=== PATIENT | female | born 1945 | race Caucasian/White ===

== ENCOUNTER 2019-12-10 18:27 | Emergency (ER) | payer OTHER, BC ==
[2019-12-10 19:14] LABS: Urine Blood 1+ (NEG); Urine Glucose NEGATIVE (NEG); Urine Protein NEGATIVE (NEG); Urine Specific Gravity 1.015 (1.005-1.030)
[2019-12-10 19:23] LABS: Urine Bacteria <20 /HPF (<20); Urine Culture Reflex Order NOT NEEDED; Urine RBC <5 /HPF (NONE SEEN)
[2019-12-10 19:24] LABS: Absolute Lymphocytes (CBC) 0.8 K/uL (0.7-4.9); Basophils % 0.6 % (0-1.3); Hematocrit 41.3 % (36.0-45.0); Lymphocytes % 13.4 % (15.3-44.8); MPV 7.5 fL (7.6-11.3); RBC Red Blood Cell Count 4.38 M/uL (3.86-4.86)
[2019-12-10 19:41] LABS: ALT/SGPT 19 U/L (12-78); AST/SGOT 11 U/L (15-37); Albumin 3.5 g/dL (3.4-5.0); Alkaline Phosphatase 94 U/L (45-117); BUN Blood Urea Nitrogen 13 mg/dL (7-18); Bicarbonate 27 mmol/L (21-32); Bilirubin Direct < 0.1 mg/dL (0-0.2); Bilirubin Total 0.2 mg/dL (0.2-1.0); Glucose Level 118 mg/dL (74-106); Lipase 50 U/L (73-393); Potassium 3.2 mmol/L (3.5-5.1); Protein, Total 7.1 g/dL (6.4-8.2); Sodium Level 138 mmol/L (136-145)
[2019-12-10] MEDS ORDERED: NA CHLORIDE 0.9% 1,000 ML ONE (20:00)
[2019-12-10 20:17] LABS: Urine Bacteria <20 /HPF (<20); Urine Culture Reflex Order NOT NEEDED; Urine RBC NONE SEEN /HPF (NONE SEEN)
--- NOTE | 2019-12-10 20:48 | RAD REPORT ---
EXAM DESCRIPTION: CTAbdomen Pelvis W Contrast - 12/10/2019 8:34 pm CLINICAL HISTORY: Abdominal pain. Dysuria COMPARISON: Chest Single View dated 09/12/2019; Chest Single View dated 04/25/2017; Chest Pa And Lat (2 Views) dated 04/14/2017; CHEST SINGLE VIEW dated 12/23/2014No comparisons TECHNIQUE: Biphasic CT imaging of the abdomen and pelvis was performed with 100 ml non-ionic IV cont rast. All CT scans are performed using dose optimization technique as appropriate and may include automated exposure control or mA/KV adjustment according to patient size. FINDINGS: The lung bases are clear.Small hiatal hernia. The liver, spleen, pancreas, adrenal glands and kidneys are within normal limits. No bowel obstruction, free air, free fluid or abscess. The appendix is normal. No evidence of signi ficant lymphadenopathy. No suspicious bony findings. IMPRESSION: No acute intra-abdominal or pelvic finding.
--- NOTE | 2019-12-10 21:04 | EDPHYS ---
Physician Documentation [facility] Name: Stefany Oakley Age: 74 yrs Sex: Female : 1945 Arrival Date: 12/10/2019 Time: 18:29 Bed 13 Private MD: Shukri Amezcua V ED Physician Jag Lu HPI: 12/10 18:53 This 74 yrs old Female presents to ER via Ambulatory with complaints of pm1 Urinary Problem. 18:53 The patient presents with urinary symptoms, urinary retention. Onset: The pm1 symptoms/episode began/occurred 3 day(s) ago, and became worse today. Modifying factors: The symptoms are alleviated by nothing, the symptoms are aggravated by nothing. Associated signs and symptoms: Pertinent negatives: diarrhea, fever, nausea, vomiting, Chills. Severity of symptoms: in the emergency department the symptoms are actually worse. The patient has been recently seen by a physician: the patient's primary care provider, Dr. Amezcua. Patient was diagnosed with UTI by PCP and took 14 days of antibiotics. She had burning with urination. Completed the antibiotics on Wednesday and reports she had some difficulty with urinating and urine retention onset the following day on . The burning with urination has resolved but she reports that she had to strain to urinate since . Today, she has not been able to urinate since 299 until arriving to the ER where she pee just a little bit for the urine sample. Historical: - Allergies: 18:30 No Known Allergies; rb1 - PMHx: 18:30 UTI; rb1 - PSHx: 18:30 Hysterectomy; Knee surgery; foot; rb1 - Immunization history:: Adult Immunizations up to date. - Coronavirus screen:: The patient has NOT traveled to [place], [place], or [place] in the past 14 days. The patient has NOT had contact with known/suspected case of Coronavirus?. - Social history:: Smoking status: Patient reports the use of cigarette tobacco products, smokes one pack cigarettes per day. - Ebola Screening: : Patient negative for fever greater than or equal to 101.5 degrees Fahrenheit, and additional compatible Ebola Virus Disease symptoms. ROS: 18:53 Positive for difficulty urinating, urinary retention, Negative for flank pain. pm1 18:53 Constitutional: Negative for fever, chills, and weight loss, Cardiovascular: Negative for chest pain, palpitations, and edema, Respiratory: Negative for shortness of breath, cough, wheezing, and pleuritic chest pain, Back: Negative for injury and pain. 18:53 MS/Extremity: Negative for injury and deformity, Skin: Negative for injury, rash, and discoloration. 18:53 Neuro: Negative for headache, weakness, numbness, tingling, and seizure. 18:53 Abdomen/GI: Positive for abdominal distension, of the suprapubic area, suprapubic pressure. 18:53 : Positive for difficulty urinating, Retention, Negative for flank pain, burning with urination. Exam: 18:53 Constitutional: This is a well developed, well nourished patient who is awake, alert, pm1 and in no acute distress. Head/Face: Normocephalic, atraumatic. Neck: Trachea midline, no thyromegaly or masses palpated, and no cervical lymphadenopathy. Supple, full range of motion without nuchal rigidity, or vertebral point tenderness. No Meningismus. Chest/axilla: Normal chest wall appearance and motion. Nontender with no deformity. No lesions are appreciated. Cardiovascular: Regular rate and rhythm with a normal S1 and S2. No gallops, murmurs, or rubs. Normal PMI, no JVD. No pulse deficits. Respiratory: Lungs have equal breath sounds bilaterally, clear to auscultation and percussion. No rales, rhonchi or wheezes noted. No increased work of breathing, no retractions or nasal flaring. 18:53 Back: No spinal tenderness. No costovertebral tenderness. Full range of motion. Skin: Warm, dry with normal turgor. Normal color with no rashes, no lesions, and no evidence of cellulitis. MS/ Extremity: Pulses equal, no cyanosis. Neurovascular intact. Full, normal range of motion. 18:53 Abdomen/GI: Inspection: abdomen appears normal, Bowel sounds: normal, Palpation: soft, mild abdominal tenderness, in the suprapubic area, bladder distention. 18:53 Neuro: Orientation: is normal, Motor: is normal, moves all fours. Vital Signs: 18:30 BP 147 / 85; Pulse 111; Resp 17; Temp 99.0(TE); Pulse Ox 100% on R/A; Weight 69.4 kg rb1 (R); Height 5 ft. 4 in. (162.56 cm) (R); Pain 8/10; 20:00 BP 135 / 85; Pulse 109; Resp 18; Pulse Ox 99% on R/A; vc 21:15 BP 124 / 85; Pulse 104; Resp 18; Pulse Ox 98% on R/A; vc 18:30 Body Mass Index 26.26 (69.40 kg, 162.56 cm) rb1 MDM: 18:47 Patient medically screened. pm1 21:00 Data reviewed: vital signs. Data interpreted: Pulse oximetry: on room air is 100 %. pm1 Interpretation:. 21:00 Counseling: I had a detailed discussion with the patient and/or guardian regarding: the pm1 historical points, exam findings, and any diagnostic results supporting the discharge/admit diagnosis, lab results, radiology results, the need for outpatient follow up, for definitive care, a urologist. 21:00 Refusal of service: The patient/guardian displays adequate decision making capability pm1 and despite a detailed discussion of alternatives, benefits, risks, and consequences refuses: Moraes with leg bag to follow up with urology. Informed the patient that with a diagnosis of urinary retention that this would be the standard of care to have a moraes in place. The patient does not want to go home with a Moraes. She wants it removed and plans to follow up with Dr. Mancilla tomorrow. 21:24 ED course: Patient reported to RN that she was able to urinate " a good amount with a pm1 little straining" without the moraes in place. 12/10 18:53 Order name: Urine Microscopic Only; Complete Time: 19:25 pm1 12/10 18:53 Order name: Basic Metabolic Panel; Complete Time: 20:11 pm1 12/10 18:53 Order name: CBC with Diff; Complete Time: 19:29 pm1 12/10 18:53 Order name: Creatinine for Radiology; Complete Time: 20:11 pm1 12/10 18:53 Order name: Hepatic Function; Complete Time: 20:11 pm1 12/10 18:53 Order name: Lipase; Complete Time: 20:11 pm1 12/10 18:53 Order name: Urine Dipstick-Ancillary (obtain specimen); Complete Time: 19:05 pm1 12/10 18:53 Order name: CT Abd/Pelvis - IV Contrast Only; Complete Time: 20:54 pm1 12/10 19:07 Order name: Urine Dipstick--Ancillary (enter results); Complete Time: 19:22 ms 12/10 19:50 Order name: Urine Microscopic Only; Complete Time: 20:22 em1 12/10 19:50 Order name: Urine Culture em1 12/10 18:53 Order name: Bladder Scanner; Complete Time: 19:24 pm1 12/10 18:53 Order name: IV Saline Lock; Complete Time: 19:47 pm1 12/10 18:53 Order name: Labs collected and sent; Complete Time: 19:47 pm1 12/10 19:23 Order name: Moraes; Complete Time: 19:47 pm1 Administered Medications: 20:00 Drug: NS 0.9% 1000 ml Route: IV; Rate: 1000 ml; Site: right antecubital; vc 20:20 Follow up: IV Status: Completed infusion; IV Intake: 200ml vc Disposition: 12/10/19 21:03 Discharged to Home. Impression: Retention of urine. - Condition is Stable. - Discharge Instructions: Acute Urinary Retention, Female. - Medication Reconciliation Form, Thank You Letter, Antibiotic Education, Prescription Opioid Use form. - Follow up: Emergency Department; When: As needed; Reason: Worsening of condition. Follow up: Lulú Mancilla MD; When: Tomorrow; Reason: Recheck today's complaints, Continuance of care, Re-evaluation by your physician. - Problem is new. - Symptoms have improved. Addendum: 12/13/2019 22:11 Co-signature as Attending Physician, Jag Lu MD. r n Signatures: Dispatcher [employer] EDJag Monge MD MD rn Barber, Rebecca RN RN rb1 Karlos Mckay, SALES TEAM MEMBER SALES TEAM MEMBER pm1 Yris Logan RN RN vc Corrections: (The following items were deleted from the chart) 12/10 21:07 18:53 Onset: The symptoms/episode began/occurred today, pm1 pm1 21: 18:53 Patient was diagnosed with UTI by PCP and took 14 days of antibiotics. She had pm1 some difficulty with urinating and burning with urination. the burning with urination has resolved but she reports that she has had continued difficulty with urinating that required straining. Today, she has not been able to urinate since 0300 until arriving to the ER where she pee just a little bit for the urine sample. pm1 21:33 21:03 12/10/2019 21:03 Discharged to Home. Impression: Retention of urine. Condition is vc Stable. Forms are Medication Reconciliation Form, Thank You Letter, Antibiotic Education, Prescription Opioid Use. Follow up: Emergency Department; When: As needed; Reason: Worsening of condition. Follow up: Lulú Mancilla; When: Tomorrow; Reason: Recheck today's complaints, Continuance of care, Re-evaluation by your physician. Problem is new. Symptoms have improved. pm1
--- NOTE | 2019-12-10 21:04 | ER ---
Nurse's Notes [facility] Name: Stefany Oakley Age: 74 yrs Sex: Female : 1945 Arrival Date: 12/10/2019 Time: 18:29 Bed 13 Private MD: Shukri Amezcua V Diagnosis: Retention of urine Presentation: 12/10 18:37 Presenting complaint: Patient states: Just finished antibiotics for a UTI 12-08-19. rb1 Reports unable to urinate since 3:00 am today. Transition of care: patient was not received from another setting of care. Onset of symptoms was December 10, 2019 at 03:00. Risk Assessment: Do you want to hurt yourself or someone else? Patient reports no desire to harm self or others. 18:37 Method Of Arrival: Ambulatory rb1 18:37 Acuity: WILLEM 3 rb1 18:40 Initial Sepsis Screen: Does the patient meet any 2 criteria? No. Patient's initial vc sepsis screen is negative. Does the patient have a suspected source of infection? No. Patient's initial sepsis screen is negative. Care prior to arrival: None. Triage Assessment: 18:30 General: Appears in no apparent distress. comfortable, Behavior is calm, cooperative. rb1 Pain: Complains of pain in suprapubic area Pain currently is 8 out of 10 on a pain scale. Quality of pain is described as pressure. Neuro: Level of Consciousness is awake, alert, obeys commands, Oriented to person, place, time, situation. Respiratory: Airway is patent Respiratory effort is even, unlabored, Respiratory pattern is regular, symmetrical. GI: Reports diarrhea, took a laxative this morning. : Reports inability to void, since 0300 today. Historical: - Allergies: 18:30 No Known Allergies; rb1 - PMHx: 18:30 UTI; rb1 - PSHx: 18:30 Hysterectomy; Knee surgery; foot; rb1 - Immunization history:: Adult Immunizations up to date. - Coronavirus screen:: The patient has NOT traveled to [place], [place], or [place] in the past 14 days. The patient has NOT had contact with known/suspected case of Coronavirus?. - Social history:: Smoking status: Patient reports the use of cigarette tobacco products, smokes one pack cigarettes per day. - Ebola Screening: : Patient negative for fever greater than or equal to 101.5 degrees Fahrenheit, and additional compatible Ebola Virus Disease symptoms. Screenin:30 Abuse screen: Denies threats or abuse. Nutritional screening: No deficits noted. vc Tuberculosis screening: No symptoms or risk factors identified. Fall Risk None identified. Assessment: 18:45 General: Appears in no apparent distress. uncomfortable, Behavior is cooperative, vc appropriate for age, agitated. Pain: Denies pain. Neuro: Level of Consciousness is awake, alert, obeys commands, Oriented to person, place, time, situation. Cardiovascular: Capillary refill < 3 seconds Patient's skin is warm and dry. Respiratory: Respiratory effort is even, unlabored, Respiratory pattern is regular, symmetrical. GI: No signs and/or symptoms were reported involving the gastrointestinal system. Abdomen is round non-distended. : Reports inability to void, since 0300. EENT: No signs and/or symptoms were reported regarding the EENT system. Derm: Skin temperature is warm. Musculoskeletal: Circulation, motion, and sensation intact. Range of motion: intact in all extremities. 19:30 Reassessment: Patient and/or family updated on plan of care and expected duration. Pain vc level reassessed. Patient is alert, oriented x 3, equal unlabored respirations, skin warm/dry/pink. 20:08 Reassessment: Patient and/or family updated on plan of care and expected duration. Pain vc level reassessed. Patient is alert, oriented x 3, equal unlabored respirations, skin warm/dry/pink. Patient denies pain at this time. Patient states feeling better. Patient states symptoms have improved. 21:30 Reassessment: Patient and/or family updated on plan of care and expected duration. Pain vc level reassessed. Patient is alert, oriented x 3, equal unlabored respirations, skin warm/dry/pink. Patient denies pain at this time. Patient states feeling better. Vital Signs: 18:30 BP 147 / 85; Pulse 111; Resp 17; Temp 99.0(TE); Pulse Ox 100% on R/A; Weight 69.4 kg rb1 (R); Height 5 ft. 4 in. (162.56 cm) (R); Pain 8/10; 20:00 BP 135 / 85; Pulse 109; Resp 18; Pulse Ox 99% on R/A; vc 21:15 BP 124 / 85; Pulse 104; Resp 18; Pulse Ox 98% on R/A; vc 18:30 Body Mass Index 26.26 (69.40 kg, 162.56 cm) rb1 ED Course: 18:29 Patient arrived in ED. ag5 18:30 Shukri Amezcua MD is Private Physician. ag5 18:30 Arm band placed on right wrist. rb1 18:40 Triage completed. rb1 18:47 Karlos Mckay, PATRICIO is PHCP. pm1 18:47 Jag Lu MD is Attending Physician. pm1 19:02 Yris Logan RN is Primary Nurse. vc 19:06 Patient has correct armband on for positive identification. Placed in gown. Bed in low mh5 position. Call light in reach. Warm blanket given. Pulse ox on. NIBP on. 19:06 Urine Microscopic Only Sent. mh5 19:06 Urine collected: clean catch specimen, clear. mh5 19:24 Bladder scan completed. 515 mL detected. em1 20:34 CT completed. Patient tolerated procedure well. Patient moved back from CT. bq 20:34 CT Abd/Pelvis - IV Contrast Only In Process Unspecified. EDMS 21:02 Lulú Mancilla MD is Referral Physician. pm1 21:30 No provider procedures requiring assistance completed. IV discontinued, intact, vc bleeding controlled, No redness/swelling at site. Pressure dressing applied. Administered Medications: 20:00 Drug: NS 0.9% 1000 ml Route: IV; Rate: 1000 ml; Site: right antecubital; vc 20:20 Follow up: IV Status: Completed infusion; IV Intake: 200ml vc Intake: 20:20 IV: 200ml; Total: 200ml. vc Outcome: 21:03 Discharge ordered by . pm1 21:30 Discharged to home ambulatory. vc 21:30 Condition: good 21:30 Discharge instructions given to patient, Instructed on discharge instructions, follow up and referral plans. medication usage, Demonstrated understanding of instructions, follow-up care, medications. 21:33 Patient left the ED. vc Signatures: Dispatcher [employer] EDVT Mana Poole Eric em1 Ann Lee RN RN rb1 Karlos Mckay, PATRICIO GAS REGULATOR REPAIRER pm1 Morelia Moyer 5 Shelbi Bundy [facility] Yris Logan RN RN vc Corrections: (The following items were deleted from the chart) : 20: General: Appears in no apparent distress. uncomfortable, Behavior is cooperative, vc appropriate for age, agitated, vc : 20: Pain: Denies pain. vc vc : 20: Neuro: Level of Consciousness is awake, alert, obeys commands, Oriented to vc person, place, time, situation, vc : 20:03 Cardiovascular: Capillary refill < 3 seconds Patient's skin is warm and dry. vc vc : 20: Respiratory: Respiratory effort is even, unlabored, Respiratory pattern is vc regular, symmetrical, vc : 20: GI: No signs and/or symptoms were reported involving the gastrointestinal system. vc Abdomen is round non-distended, vc : 20: : Reports inability to void, since 0300 vc vc : 20:03 EENT: No signs and/or symptoms were reported regarding the EENT system. vc vc :05 20: Derm: Skin temperature is warm vc vc :05 20: Musculoskeletal: Circulation, motion, and sensation intact. Range of motion: vc intact in all extremities, vc : 18:30 Neuro: Level of Consciousness is awake, alert, obeys commands, Oriented to vc person, place, time, situation, vc : 18:30 Cardiovascular: Capillary refill < 3 seconds Patient's skin is warm and dry. vc vc : 18:30 General: Appears in no apparent distress. uncomfortable, Behavior is cooperative, vc appropriate for age, agitated, vc 20: 18:30 GI: No signs and/or symptoms were reported involving the gastrointestinal system. vc Abdomen is round non-distended, vc : 18:30 Pain: Denies pain. vc vc 20: 18:30 Respiratory: Respiratory effort is even, unlabored, Respiratory pattern is vc regular, symmetrical, vc 20: 18:30 EENT: No signs and/or symptoms were reported regarding the EENT system. vc vc 20: 18:30 : Reports inability to void, since 0300 vc vc 20: 18:30 Derm: Skin temperature is warm vc vc 20: 18:30 Musculoskeletal: Circulation, motion, and sensation intact. Range of motion: vc intact in all extremities, vc
[2019-12-10 21:38] VITALS: BP 147/85; TEMP 99; O2SAT 100
== END 2019-12-10 21:33 | disposition home or self-care (01) ==
LOC: ER 18:27
DX: R33.9 Retention of urine, unspecified (principal)
CPT/HCPCS: 87088; 85025; 80048; 36415; 80076; 83690; 74177; 99284; Q9967; J7030; 81003; 81015; 87086

== ENCOUNTER 2021-01-14 12:22 | Emergency (ER) | payer OTHER, BC ==
--- NOTE | 2021-01-14 14:35 | RAD REPORT ---
EXAM DESCRIPTION: RAD - Tib Fib Left - 01/14/2021 2:22 pm CLINICAL HISTORY: PAIN Trauma, pain COMPARISON: Foot Left 3 View dated 01/14/2021 FINDINGS: Soft tissue swelling is seen about the leg. No acute fracture or dislocation is evident.
--- NOTE | 2021-01-14 14:38 | RAD REPORT ---
EXAM DESCRIPTION: RAD - Foot Left 3 View - 01/14/2021 2:22 pm CLINICAL HISTORY: PAIN COMPARISON: No comparisons FINDINGS: Soft tissue swelling is present along the dorsum of the forefoot. No acute fracture or dis location.
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
[2021-01-14 15:13] VITALS: TEMP 97.8
[2021-01-14 15:14] VITALS: BP 120/81; O2SAT 100
[2021-01-14] MEDS ORDERED: IBUPROFEN 200 MG TAB PO ONE (15:15)
[2021-01-14] MEDS ORDERED: IBUPROFEN 400 MG TAB ONE (15:15)
== END 2021-01-14 15:09 | disposition home or self-care (01) ==
LOC: ER 12:22
DX: S80.12XA Contusion of left lower leg, initial encounter (principal); V09.9XXA Pedestrian injured in unspecified transport accident, initial encounter; I10 Essential (primary) hypertension
CPT/HCPCS: 99283

== ENCOUNTER 2021-05-08 09:00 | Inpatient (IN) | payer OTHER, BC ==
[2021-05-08 09:38] LABS: Absolute Lymphocytes (CBC) 1.3 K/uL (0.7-4.9); Basophils % 0.4 % (0-1.3); Hematocrit 29.3 % (36.0-45.0); Lymphocytes % 17.8 % (15.3-44.8); MPV 6.4 fL (7.6-11.3); RBC Red Blood Cell Count 3.29 M/uL (3.86-4.86)
[2021-05-08 09:49] LABS: BUN Blood Urea Nitrogen 12 mg/dL (7-18); Bicarbonate 30 mmol/L (21-32); Glucose Level 78 mg/dL (74-106); Potassium 3.2 mmol/L (3.5-5.1); Sodium Level 138 mmol/L (136-145)
[2021-05-08] MEDS ORDERED: Ringers Lactate 1,000 ML IV ONE (09:56)
[2021-05-08] MEDS ORDERED: FENTANYL CITR 100 MCG/2 ML ONE (10:20)
[2021-05-08] MEDS ORDERED: LIDOCAINE 1% MPF 5 ML VIAL ONE (10:20)
[2021-05-08] MEDS ORDERED: MIDAZOLAM HCL 2 MG/2 ML INJ ONE (10:20)
[2021-05-08] MEDS ORDERED: propofoL 200 MG/20 ML VIAL IV ONE (10:20)
[2021-05-08] MEDS ORDERED: ONDANSETRON 4 MG/2 ML VIAL ONE (10:23)
[2021-05-08] MEDS ORDERED: CEFAZOLIN/SWI 1gm 1 GM/10 ML SYR ONE (10:50)
[2021-05-08] MEDS ORDERED: KETOROLAC 30 MG/ML INJ ONE (11:56)
[2021-05-08] MEDS: MEPERIDINE HCL 25 MG/ML SYR ONE ×2 (12:13→12:31)
[2021-05-08] MEDS: MIDAZOLAM HCL 2 MG/2 ML INJ ONE ×2 (12:14→12:19)
[2021-05-08] MEDS ORDERED: MEPERIDINE HCL 25 MG/ML SYR ONE (13:03)
[2021-05-08] MEDS ORDERED: VANCOMYCIN/NS 1 gm 1 GM/250 ML BAG IVPB SCH (13:15)
[2021-05-08] MEDS ORDERED: TRAMADOL HCL 50 MG TAB PO PRN (13:43)
[2021-05-08] MEDS ORDERED: ROPINIROLE HCL 0.25 MG TAB PO PRN (13:45)
[2021-05-08] MEDS ORDERED: ONDANSETRON 4 MG/2 ML VIAL IV PRN ×2 (13:47→20:55)
[2021-05-08] MEDS ORDERED: ONDANSETRON 4 MG (ODT) TAB PO PRN (13:47)
[2021-05-08] MEDS ORDERED: DIPHENHYDRAMINE 25 MG TAB/CAP PO PRN (13:48)
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
[2021-05-08] MEDS ORDERED: POTASSIUM 25 MEQ EFFERV TAB PO ONE (14:00)
[2021-05-08] MEDS: GABAPENTIN 300 MG CAP PO SCH ×2 (14:59→20:50)
[2021-05-08] MEDS: VANCOMYCIN 1.25 GM in NA CHLORIDE 0.9% 250 ML IVPB SCH (15:00)
[2021-05-08] MEDS: CYCLOBENZAPRINE 10 MG TAB PO SCH ×2 (15:00→20:50)
[2021-05-08 15:56] VITALS: BMI 25.7
[2021-05-08] MEDS: ENOXAPARIN 40 MG/0.4 ML SQ SCH (16:00)
[2021-05-08] MEDS: PIPER/TAZO/NS 3.375gm 3.375 GM/100 ML BAG IVPB SCH (17:25)
[2021-05-08] MEDS ORDERED: HOME MED 1 EA UNK (Ropinirole Hcl [Ropinirole Hcl] 2 MG Tablet) PO SCH (21:00)
[2021-05-08] MEDS ORDERED: ATORVASTATIN 10 MG TAB PO SCH (21:00)
[2021-05-08] MEDS ORDERED: HOME MED 1 EA UNK (Pravastatin Sodium [Pravastatin Sodium] 40 MG Tablet) PO SCH (21:00)
[2021-05-08] MEDS: ROPINIROLE HCL 1 MG TAB PO SCH (21:02)
[2021-05-08] MEDS: HYDROMORPHONE HCL 1 MG/ML INJ IV PRN (21:10)
[2021-05-08] MEDS ORDERED: NA CHLORIDE 0.9% 250 ML ONE (21:30)
--- NOTE | 2021-05-08 21:38 | P.HP ---
Certification for Inpatient Patient admitted to: Inpatient With expected LOS: >2 Midnights Practitioner: I am a practitioner with admitting privileges, knowledge of patient current condition, hospital course, and medical plan of care. Services: Services provided to patient in accordance with Admission requirements found in Title 42 Section 412.3 of the Code of Federal Regulations Patient History Date of Service: 05/08/21 Reason for admission: INFECTION OF PLASTIC SURGERY WOUND History of Present Illness: MS. RUBI HAD ABDOMINAL SURGERY, TUMMY TUCK AND BREAST AUGMENTATION. SHE DEVELOPED POST OP INFECTION. DR. JOYNER DID SURGICAL DEBRIDEMENT OF NECROTIC TISSUE AND ASKED ME TO ADMIT HER SHE IS MY PATIENT. STARTED HER ON VANCOMYCIN AND ZOSYN IT IS POST OP INFECTION. SHE IS STABLE BUT IN SIGNIFICANT AMOUNT OF PAIN. Allergies No Known Allergies Allergy (Verified 05/08/21 09:06) Home medications list reviewed: Yes Home Medications: Amlodipine [Norvasc*] 1 tab PO DAILY 01/27/21 Omeprazole 1 cap PO DAILY 01/27/21 Pravastatin Sodium 1 tab PO BEDTIME 01/27/21 Ropinirole HCl 1 tab PO BID 01/27/21 Thyroid Tab [[place] Thyroid*] 1 tab PO DAILY 01/27/21 Cyclobenzaprine [Flexeril*] 10 mg PO TID 05/08/21 Gabapentin 300 mg PO TID 05/08/21 Montelukast [Singulair*] 10 mg PO DAILY 05/08/21 Sulfamethoxazole/Trimethoprim [Bactrim 400-80 mg Tablet] 800 mg PO BID 05/08/21 levoFLOXacin [Levaquin] 750 mg PO DAILY 05/08/21 - Past Medical/Surgical History Has patient received pneumonia vaccine in the past: Yes Diabetic: No -: HTN -: RLS -: HLD -: Restless leg syndrome -: Hysterectomy -: hemorroid removal -: L knee surgery -: breast lift -: "tummy tuck" - Social History Smoking Status: Former smoker Alcohol use: Yes CD- Drugs: No Caffeine use: Yes Place of Residence: Home Review of Systems 10-point ROS is otherwise unremarkable General: Weakness, Malaise Integumentary: As per HPI Physical Examination - Vital Signs Temperature: 97.8 F Blood Pressure: 110/66 Pulse: 80 Respirations: 18 Pulse Ox (%): 95 - Physical Exam General: Oriented x3, Moderate distress HEENT: Atraumatic, PERRLA, Mucous membr. moist/pink, EOMI, Sclerae nonicteric Neck: Supple, 2+ carotid pulse no bruit, No LAD, Without JVD or thyroid abnormality Respiratory: Clear to auscultation bilaterally, Normal air movement Cardiovascular: Regular rate/rhythm, Normal S1 S2 Gastrointestinal: Normal bowel sounds, No tenderness Musculoskeletal: No tenderness Integumentary: No rashes Neurological: Normal gait, Normal speech, Normal strength at 5/5 x4 extr, Normal tone, Normal affect Lymphatics: No axilla or inguinal lymphadenopathy - Studies Laboratory Data (last 24 hrs) 05/08/21 09:25: Sodium 138, Potassium 3.2 L, BUN 12, Creatinine 0.61, Glucose 78 05/08/21 09:25: WBC 7.30, Hgb 10.0 L, Hct 29.3 L, Plt Count 409 H Assessment and Plan - Problems (Diagnosis) (1) Post op infection Current Visit: Yes Status: Acute Plan: NECROTIC ABDOMINAL WALL INFECTION POST OP. VANCOMYCIN AND ZOSYN. CULTURE SENT FROM PLASTIC SURGERY CLINIC. STABLE MEDICALLY. PAIN CONTROL. Qualifiers: Encounter type: initial encounter - Advance Directives Does patient have a Living Will: Yes Does patient have a Durable POA for Healthcare: Yes
[2021-05-09 00:07] VITALS: O2SAT 95
[2021-05-09] MEDS: PIPER/TAZO/NS 3.375gm 3.375 GM/100 ML BAG IVPB SCH ×2 (00:14→08:40)
[2021-05-09] MEDS: HYDROMORPHONE HCL 1 MG/ML INJ IV PRN ×3 (03:58→12:59)
[2021-05-09] MEDS ORDERED: THYROID 30 MG TAB PO SCH (06:30)
[2021-05-09] MEDS: VANCOMYCIN 1.25 GM in NA CHLORIDE 0.9% 250 ML IVPB SCH (08:30)
[2021-05-09] MEDS: ROPINIROLE HCL 1 MG TAB PO SCH (08:33)
[2021-05-09] MEDS: CYCLOBENZAPRINE 10 MG TAB PO SCH ×2 (08:34→13:00)
[2021-05-09] MEDS: GABAPENTIN 300 MG CAP PO SCH ×2 (08:34→13:00)
[2021-05-09] MEDS: ENOXAPARIN 40 MG/0.4 ML SQ SCH (08:35)
[2021-05-09 08:39] LABS: Absolute Lymphocytes (CBC) 1.3 K/uL (0.7-4.9); Basophils % 0.4 % (0-1.3); Hematocrit 26.9 % (36.0-45.0); Lymphocytes % 13.3 % (15.3-44.8); MPV 6.3 fL (7.6-11.3); RBC Red Blood Cell Count 2.99 M/uL (3.86-4.86)
[2021-05-09 08:59] LABS: BUN Blood Urea Nitrogen 11 mg/dL (7-18); Bicarbonate 30 mmol/L (21-32); Glucose Level 119 mg/dL (74-106); Potassium 3.6 mmol/L (3.5-5.1); Sodium Level 138 mmol/L (136-145)
[2021-05-09] MEDS ORDERED: MONTELUKAST 10 MG TAB PO SCH (09:00)
[2021-05-09] MEDS ORDERED: AMLODIPINE 5 MG TAB PO SCH (09:00)
[2021-05-09] MEDS ORDERED: POLYETHYL GLY 3350 17 GM/DOSE PO SCH (09:00)
[2021-05-09] MEDS ORDERED: HOME MED 1 EA UNK (Omeprazole [Omeprazole] 20 MG Capsule.Dr) PO SCH (09:00)
[2021-05-09] MEDS ORDERED: PANTOPRAZOLE 40MG TABLET PO SCH (09:00)
[2021-05-09 13:29] VITALS: BP 108/53; TEMP 98.6
--- NOTE | 2021-05-09 14:53 | RAD REPORT ---
EXAM DESCRIPTION: USExtrem Venous W Compress Bil05/09/2021 2:45 pm CLINICAL HISTORY: Leg swelling COMPARISON: March 2021 FINDINGS: The common femoral, superficial femoral, popliteal and posterior tibial veins bilaterally are compressible and demonstrate augmentation. Doppler demonstrates good flow. IMPRESSION: No evidence of deep venous thrombosis involving either lower extremity.
--- NOTE | 2021-05-09 20:00 | P.DS ---
Admission Date: 05/09/21 Discharge Date: 05/09/21 Disposition: DC HOME/HOME HEALTH CARE Reason for Admission: INFECTION OF PLASTIC SURGERY WOUND - Problems (1) Post op infection Status: Acute Qualifiers: Encounter type: initial encounter Brief History of Present Illness: MS. RUBI HAD ABDOMINAL SURGERY, TUMMY TUCK AND BREAST AUGMENTATION. SHE DEVELOPED POST OP INFECTION. DR. JOYNER DID SURGICAL DEBRIDEMENT OF NECROTIC TISSUE AND ASKED ME TO ADMIT HER SHE IS MY PATIENT. STARTED HER ON VANCOMYCIN AND ZOSYN IT IS POST OP INFECTION. SHE IS STABLE BUT IN SIGNIF ICANT AMOUNT OF PAIN. Hospital Course: HAD POST SURGICAL INFECTION AFTER PLASTIC SURGERY. DR. JOYNER CALLED ME TO ADMIT HER AND GET IV ABX ADN PAIN MEDS. SHE IS STABLE AFTER A DAY. HER VENOUS DOPPLER IN LEGS ARE NEGATIVE FOR CLOTS. SHE HAS POST SURGICAL EDEMA MAINLY FROM LOW ALBUMIN. SHE IS STABLE TO GO HOME. DR. JOYNER WANTS TO CONTINUE ORAL ABX. SHE GAVE ALL RX. Vital Signs/Physical Exam: Temp Pulse Resp BP Pulse Ox 98.6 F 103 H 18 108/53 L 99 05/09/21 12:00 05/09/21 12:00 05/09/21 13:29 05/09/21 12:00 05/09/21 13:29 Laboratory Data at Discharge: WBC 9.60 K/uL (4.3-10.9) D 05/09/21 08:25 Hgb 8.7 g/dL (12.0-15.0) L 05/09/21 08:25 Hct 26.9 % (36.0-45.0) L 05/09/21 08:25 Plt Count 384 K/uL (152-406) 05/09/21 08:25 Sodium 138 mmol/L (136-145) 05/09/21 08:25 Potassium 3.6 mmol/L (3.5-5.1) 05/09/21 08:25 BUN 11 mg/dL (7-18) 05/09/21 08:25 Creatinine 0.62 mg/dL (0.55-1.3) 05/09/21 08:25 Glucose 119 mg/dL (74-106) H 05/09/21 08:25 Home Medications: Amlodipine [Norvasc*] 1 tab PO DAILY 01/27/21 Omeprazole 1 cap PO DAILY 01/27/21 Pravastatin Sodium 1 tab PO BEDTIME 01/27/21 Ropinirole HCl 1 tab PO BID 01/27/21 Thyroid Tab [[place] Thyroid*] 1 tab PO DAILY 01/27/21 Cyclobenzaprine [Flexeril*] 10 mg PO TID 05/08/21 Gabapentin 300 mg PO TID 05/08/21 Montelukast [Singulair*] 10 mg PO DAILY 05/08/21 Sulfamethoxazole/Trimethoprim [Bactrim 400-80 mg Tablet] 800 mg PO BID 05/08/21 levoFLOXacin [Levaquin] 750 mg PO DAILY 05/08/21 Physician Discharge Instructions: PROBLEM: Abdominal Wound GOAL: Clear understanding of disease process INSTRUCTIONS: Diet: as tolerated Activity: as tolerated If you have any questions regarding your stay call [phone] If your symptoms worsen call 911 or go to ed. Dr. Joyner has called in medications to your pharmacy. Followup: Shukri Amezcua MD [Primary Care Provider] - Hortencia Joyner [COURTESY - CAN ADMIT] -
== END 2021-05-09 15:38 | disposition home or self-care (01) | DRG 863 ==
LOC: OR 09:00 → 2ND 12:28 → OBSVTOIN 05-09 12:29
PROVIDERS: ADMIT Internal Medicine; ATTEND Internal Medicine
PROC: 0J980ZX Drainage of Abdomen Subcutaneous Tissue and Fascia, Open Approach, Diagnostic (ICD-10-PCS; principal; 2021-05-08 11:00)
DX: T81.41XA Infection following a procedure, superficial incisional surgical site, initial encounter (principal); K65.4 Sclerosing mesenteritis; I10 Essential (primary) hypertension; G25.81 Restless legs syndrome
CPT/HCPCS: 36415; 80048; 85025; 87070; 87075; 87077; 87186; 87205; 93970; G0378; J0690; J1170; J1650; J2175; J2250; J2405; J2543; J2704; J2800; J3010; J3370; J7050; J7120

== ENCOUNTER → 2024-10-13 | Day surgery (SDC) | payer OTHER, BC ==
--- NOTE | 2024-10-13 11:39 | RAD REPORT ---
Exam:Breast Core BX w/US Guidance R92.8 CLINICAL HISTORY: Left breast mass TECHNIQUE: The risks, benefits and alternatives to procedure were explained to the patient and informed consent obtained. Prior ultrasound was reviewed. Skin and deeper tissues were anesthetized with lidocaine. Under sonographic guidance an 18-gauge needle was placed into the retroareolar mass left breast. A sy ringe was attached to the needle and 3 needle passes obtained. Specimens given to pathology. Subsequently a 17-gauge needle was placed into the mass. An 18-gauge needle was then introduced throu gh this and two 1 cm core specimens obtained and given to pathology. Pressure was applied to the biopsy site. Patient experienced immediate complication. IMPRESSION: Fine needle aspirations as well as core biopsies of the retroareolar mass left breast
== END ==
LOC: DS 08:33
PROVIDERS: ATTEND Internal Medicine
DX: D48.62 Neoplasm of uncertain behavior of left breast (principal)
CPT/HCPCS: 19083; 88108; 88305